=== PATIENT | female | born 1955 | race Caucasian/White ===

== ENCOUNTER → 2019-07-12 | Outpatient (CLI) | payer OTHER ==
--- NOTE | 2019-07-12 16:33 | PCVCIMAG ---
EXAM: LEFT SUPERFICIAL VENOUS DUPLEX INDICATION: Leg pain and swelling since foot fracture and tendon tear. FINDINGS: Left leg: No thrombus in the common femoral, main femoral, or popliteal veins. These veins are compressible. Left Great Saphenous Vein: At the saphenofemoral junction the diameter is 7.8 mm, in the mid thigh it is 6.0 mm, and in the calf it is 5.5 mm. There is significant venous insufficiency/reflux throughout. Venous insufficiency/reflux duration is 2.0 seconds. Left Small Saphenous Vein: At the saphenopopliteal junction the diameter is 3.1 mm, and in the calf it is 2.2 mm. There is not significant venous insufficiency/reflux throughout. Venous insufficiency/reflux duration is 0 seconds. There is not a cranial extension present. IMPRESSION: Left Great Saphenous Vein: Significant venous insufficiency/reflux is present as noted above. Left Small Saphenous Vein: No significant venous insufficiency/reflux is present as noted above. LOC:[place] [id number]
== END | disposition home or self-care (01) ==
LOC: PCVCIMAG 14:41
PROVIDERS: ATTEND Family Medicine
DX: I83.892 Varicose veins of left lower extremity with other complications (principal)
CPT/HCPCS: 93971